=== PATIENT | female | born 1975 | race Two or more races ===

== ENCOUNTER 2016-12-13 18:41 | Emergency (ER) | payer MEDICAID ==
[~2016-12-13] VITALS: Ht 162.6 cm; Wt 90.7 kg
[~2016-12-13 18:41] MED LIST: ACETAMINOPHEN-1 EAC1 ORAL; ALBUTEROL SULF8.5 GM INH; AZITHROMYCIN250 MG PO; BENADRYL25 MG ORAL; CYCLOBENZAPRINE10 MG ORAL; HYDROCORTISON28.4 G5 RC; IBUPROFEN600 MG ORAL; NEXIUM20 MG ORAL; NITROFURANTOIN100 M2 ORAL; NKM; NORCO 5-325 TA1 EACH ORAL; ONDANSETRON ODT4 MG ORAL; PHENERGAN6.25 MG/5 ORAL; PROAIR HFA8.5 GM INH; ZOFRAN ODT4 MG ORAL
[2016-12-13] MEDS ORDERED: Metoclopramide 10mg/10ml Liq ORAL ONE (19:15)
[2016-12-13 19:19] LABS: APPEARANCE,URINE CLEAR; KETONES,URINE NEGATIVE (NEGATIVE); LEUKOCYTE ESTERASE ,URINE NEGATIVE (NEGATIVE); NITRITE,URINE NEGATIVE (NEGATIVE); PH,URINE 6 (4.5-8.0); PROTEIN,URINE NEGATIVE (NEGATIVE); UROBILINOGEN,URINE NORMAL MG/DL (0.0-1.0)
[2016-12-13 19:27] LABS: BACTERIA,URINE FEW /HPF; SQUAMOUS EPITHELIAL CELL,UR FEW /LPF (NONE/OCC); WBC,URINE 0-2 /HPF (0 - 2)
[2016-12-13] MEDS ORDERED: Ketorolac 60mg Inj IM ONE (19:45)
--- NOTE | 2016-12-13 19:50 | Emergency Room Report ---
History of Present Illness General Chief Complaint: Headache Source: Patient Present Illness HPI 40-year-old female presents to the emergency department complaining of 10 out of 10 in severity left-sided headache x3 days with associated photophobia. Patient denies nausea, vomiting, fevers, chills, neck pain or stiffness, recent infection. Patient reports history of headaches almost daily for approximately 2 years. Patient states she was evaluated for migraine in the emergency department in the past but never followed up with a neurologist. Patient denies rhinorrhea or increased lacrimation. Patient states the pain is progressive over several days and then will completely resolve for approximately one day before returning again. denies weakness, imbalance , tinnitus, vertigo or dizziness. Patient denies dysuria, frequency, hematuria. Denies trauma or fall. Patient states that a few days ago she had a popped blood vessel in the left eye. Patient denies taking medication for her symptoms. Patient does not see primary care regularly. Denies CP, Palpitations , LOC, AMS, Changes in Vision, Sensation, paresthesias, or a sudden severe headache. Denies . Allergies: Coded Allergies: No Known Allergies (Unverified , 12/13/16) Patient History Past Medical History: see triage record Past Surgical History: none Pertinent Family History: none Last Menstrual Period: now Now: No Reviewed Nursing Documentation: PMH: Agreed, PSxH: Agreed Nursing Documentation-PMH Past Medical History: No Stated History Hx Asthma: Yes Review of Systems All Other Systems: negative except mentioned in HPI Physical Exam Vital Signs Date Time Temp Pulse Resp B/P Pulse Ox O2 Delivery O2 Flow Rate FiO2 12/13/16 18:45 98.1 86 18 120/77 98 Room Air Sp02 EP Interpretation: reviewed, normal General Appearance: no apparent distress, alert, GCS 15, non-toxic Head: normocephalic, atraumatic Eyes: left eye other - no clinical photophobia noted on physical exam, bilateral eye EOMI, bilateral eye PERRL, bilateral eye normal inspection ENT: hearing grossly normal, normal voice Neck: full range of motion, no meningismus, no bony tend, supple/symm/no masses Respiratory: lungs clear, normal breath sounds, speaking full sentences Cardiovascular #1: regular rate, rhythm, no edema Genitourinary: normal inspection, no CVA tenderness Musculoskeletal: back normal, gait/station normal, normal range of motion, non- tender Neurologic: alert, oriented x3, responsive, motor strength/tone normal, sensory intact, cerebellar normal, normal gait, speech normal, no pronator, other - negative sterling, DTR's are symmetric Psychiatric: judgement/insight normal, memory normal, mood/affect normal Reflexes: 2+ knee (R), 2+ knee (L) Skin: normal color, no rash, warm/dry, well hydrated Lymphatic: no adenopathy Medical Decision Making PA Attestation Dr. Oliver is my supervising Physician whom patient management has been discussed with. Diagnostic Impression: Primary Impression: Headache Qualified Codes: G44.011 - Episodic cluster headache, intractable ER Course 40-year-old female presents to the emergency department complaining of 10 out of 10 in severity left-sided progressive constant pulsatile headache x3 days with associated photophobia. Patient denies nausea, vomiting, fevers, chills, neck pain or stiffness, recent infection. Patient reports history of headaches almost daily for approximately 2 years. Patient states she was evaluated for migraine in the emergency department in the past but never followed up with a neurologist. Patient denies rhinorrhea or increased lacrimation. Patient states the pain is progressive over several days and then will completely resolve for approximately one day before returning again. denies weakness, imbalance , tinnitus, vertigo or dizziness. Patient denies dysuria, frequency , hematuria. Denies trauma or fall. Patient states that a few days ago she had a popped blood vessel in the left eye. Patient denies taking medication for her symptoms. Patient does not see primary care regularly. Denies CP, Palpitations, LOC, AMS, Changes in Vision, Sensation, paresthesias, or a sudden severe headache. Denies . Ddx considered but are not limited to migraine, SAH, Psedudo motor Cerebri, Mass lesion, Cluster MAYO, Tension MAYO, cranial mass/tumor , Post lumbar puncture MAYO, meningitis just to name a few. Vital signs: are WNL, pt. is afebrile H&PE are most consistent with migraine headache vs. cluster MAYO. no focal neurological deficits, negative pronator, face is symmetric. ORDERS: - UA: unremarkable -Urine Hcg: negative ED INTERVENTIONS: -Reglan PO -IM Toradol I do not suspect an emergent condition at this time given pt. history of chronic recurrent headaches and current benign physical exam. I believe this pt. needs to be evaluated by a neurologist for appropriate treatment of her symptoms. d/w pt. the importance of obtaining a PCP and being evaluated by a neurologist. Gave pt. ER Return precautions. Pt will be given list of primary care clinics as a resource for follow up. DISCHARGE: At this time pt. is stable for d/c to home. Will provide printed patient care instructions, and any necessary prescriptions. Care plan and follow up instructions have been discussed with the patient prior to discharge. Labs Test 12/13/16 18:55 Urine Color Pale yellow Urine Appearance Clear Urine pH 6 (4.5-8.0) Urine Specific [place] 1.020 (1.005-1.035) Urine Protein Negative (NEGATIVE) Urine Glucose (UA) Negative (NEGATIVE) Urine Ketones Negative (NEGATIVE) Urine Occult Blood 3+ (NEGATIVE) Urine Nitrite Negative (NEGATIVE) Urine Bilirubin Negative (NEGATIVE) Urine Urobilinogen Normal MG/DL (0.0-1.0) Urine Leukocyte Esterase Negative (NEGATIVE) Urine RBC 2-4 /HPF (0 - 2) Urine WBC 0-2 /HPF (0 - 2) Urine Squamous Epithelial Cells Few /LPF (NONE/OCC) Urine Bacteria Few /HPF (NONE) Urine HCG, Qualitative Negative Last Vital Signs Date Time Temp Pulse Resp B/P Pulse Ox O2 Delivery O2 Flow Rate FiO2 12/13/16 18:45 98.1 86 18 120/77 98 Room Air Disposition: HOME, SELF-CARE Condition: Stable Scripts Acetaminophen* (TYLENOL EXTRA STRENGTH*) 500 Mg Tablet 500 MG ORAL Q6HR Y for For Pain, #30 TAB 0 Refills Prov: Kenzie Carlson 12/13/16 Departure Forms: Return to Work Return to Work Date: Dec 15, 2016 Work Restrictions: None Return to Full Activity: Dec 15, 2016 Patient Instructions: Migraine Headache, Cluster Headache Additional Instructions: Take medications as directed. Follow up with a Primary Care Provider in 3-5 days, even if your symptoms have resolved. --Please review list of primary care clinics, if you do not already have a primary care provider Return sooner to ED if new symptoms occur, or current symptoms become worse. - Please note that this Emergency Department Report was dictated using [employer] methods analyst technology software, occasionally this can lead to erroneous entry secondary to interpretation by the dictation equipment. Kenzie Carlson Dec 13, 2016 19:50
[2016-12-13] MEDS ORDERED: TYLENOL EXTRA500 MG ORAL (20:14)
[2016-12-13 20:21] VITALS: BP 122/80
[2016-12-13 20:22] VITALS: BP 122/80
== END 2016-12-13 20:22 | disposition home or self-care (01) ==
LOC: EMR 20:07
DX: R51 Headache (principal); J45.909 Unspecified asthma, uncomplicated
CPT/HCPCS: 81003; 81025; 96372; 99283

== ENCOUNTER 2019-02-21 13:03 | Emergency (ER) | payer MEDICAID ==
[~2019-02-21] VITALS: Ht 152.4 cm; Wt 99.8 kg
[~2019-02-21 13:03] MED LIST changes: +TYLENOL EXTRA500 MG ORAL
[2019-02-21 13:14] VITALS: BP 109/74
--- NOTE | 2019-02-21 13:24 | NUR ---
ED Nurse Note: PT CAME IN DUE TO LEFT KNEE PAIN THAT HAS BEEN WORSE FOR THE LAST 3 DAYS.PT HAS CHRONIC KNEE PAIN X 1.5 YEARS AND IS NOT TAKING PAIN MEDS AT HOME. AAO X4 AND AMBULATORY.
--- NOTE | 2019-02-21 13:58 | Emergency Room Report ---
History of Present Illness General Chief Complaint: Pain Source: Patient Present Illness HPI 43 YO Female presents to the ED c/o 01/02 in severity progressive left knee pain x 3 days. Pt. reports exacerbation of her chronic knee pain that previously would only bother her intermittently. Pt. reports she has been more active than usual the past few days. Pt. denies recent trauma or fall. She denies erythema or warmth. Denies fevers, chills, or open wounds. Pt. reports pain is exacerbated with walking and standing. She states she also is beginning to have pain radiate to the left Hip. She denies Midline neck or back pain. Denies saddle anesthesia. She reports no relief with Tylenol which would always work for her in the past. Allergies: Coded Allergies: No Known Allergies (Unverified , 12/13/16) Patient History Past Medical History: see triage record Past Surgical History: none Pertinent Family History: none Last Menstrual Period: 02/12/19 Now: No Reviewed Nursing Documentation: PMH: Agreed; PSxH: Agreed Nursing Documentation-PMH Past Medical History: No Stated History Hx Asthma: Yes Review of Systems All Other Systems: negative except mentioned in HPI Physical Exam Vital Signs Date Time Temp Pulse Resp B/P (MAP) Pulse Ox O2 Delivery O2 Flow Rate FiO2 02/21/19 13:14 98.2 72 17 109/74 (86) 99 Room Air Sp02 EP Interpretation: reviewed, normal General Appearance: no apparent distress, alert, GCS 15, non-toxic Head: normocephalic, atraumatic Eyes: bilateral eye normal inspection, bilateral eye PERRL ENT: hearing grossly normal, normal voice Neck: full range of motion Respiratory: chest non-tender, lungs clear, normal breath sounds, speaking full sentences Cardiovascular #1: regular rate, rhythm, normal capillary refill Cardiovascular #2: 2+ dorsalis pedis (R) - post. tibial, 2+ dorsalis pedis (L) - post. tibial Musculoskeletal: back normal, gait/station normal - compensating, favoring the left leg, normal range of motion, other, tender - anteriomedial ttp. FROM. Negative anterior posterior drawer signs, no increased laxity upon varus and valgus stressing. Patient is able to bear weight. Patient is able to fully flex and extend the left leg. Neurologic: alert, oriented x3, responsive, motor strength/tone normal, sensory intact, speech normal, grossly normal Psychiatric: judgement/insight normal Skin: no rash, normal color Medical Decision Making PA Attestation Dr. Dent is my supervising Physician whom patient management has been discussed with. Diagnostic Impression: Primary Impression: Knee pain, left Qualified Codes: M25.562 - Pain in left knee ER Course 43 YO Female presents to the ED c/o 01/02 in severity progressive left knee pain x 3 days. Pt. reports exacerbation of her chronic knee pain that previously would only bother her intermittently. Pt. reports she has been more active than usual the past few days. Pt. denies recent trauma or fall. She denies erythema or warmth. Denies fevers, chills, or open wounds. Pt. reports pain is exacerbated with walking and standing. She states she also is beginning to have pain radiate to the left Hip. She denies Midline neck or back pain. Denies saddle anesthesia. She reports no relief with Tylenol which would always work for her in the past. Ddx considered but are not limited to Fracture, dislocation, contusion, Sprain/ Strain/Spasm. Vital signs: are WNL, pt. is afebrile H&PE are most consistent with musculoskeletal injury will perform imaging to r/ o fractures/dislocations. ORDERS: - X-ray Left Knee - negative for fx, Dislocation, or significant soft tissue injury, per preliminary read in ED, and signed by LUDA Carlson, my supervising physician has reviewed, and agrees with my interpretation. ED INTERVENTIONS: -Keo wrap applied by optical engineering technician. Pt. remains neurovascularly intact. DISCHARGE: At this time pt. is stable for d/c to home. Will provide printed patient care instructions, and any necessary prescriptions. Care plan and follow up instructions have been discussed with the patient prior to discharge. Other X-Ray Diagnostic Results Other X-Ray Diagnostic Results : X-Ray ordered: Left Knee # of Views/Limited Vs Complete: 3 View Indication: Pain EP Interpretation: Yes LUDA Xray: Interpretation reviewed, by supervising MD, and agrees with findings. Interpretation: no dislocation, no soft tissue swelling, no fractures Impression: No acute disease Electronically Signed by: Kenzie Carlson PA-C Last Vital Signs Date Time Temp Pulse Resp B/P (MAP) Pulse Ox O2 Delivery O2 Flow Rate FiO2 02/21/19 13:14 98.2 72 17 109/74 99 Room Air Disposition: HOME, SELF-CARE Condition: Stable Scripts Ibuprofen* (MOTRIN*) 600 Mg Tablet 600 MG ORAL THREE TIMES A DAY, #30 TAB 0 Refills Prov: Kenzie Carlson 02/21/19 Acetaminophen With Codeine (T#3) (TYLENOL #3 TAB*) Y Tab 1 TAB ORAL Q6H PRN for For Pain, #10 TAB Prov: Kenzie Carlson 02/21/19 Patient Instructions: Knee Pain, Vcer-us-Dxdl Additional Instructions: Take medications as directed. Follow up with a Primary Care Provider in 3-5 days, even if your symptoms have resolved. --Please review list of primary care clinics, if you do not already have a primary care provider Return sooner to ED if new symptoms occur, or current symptoms become worse. Do not drink alcohol, drive, or operate heavy machinery while taking Tylenol # 3 as this may cause drowsiness. - Please note that this Emergency Department Report was dictated using [employer] assistant technology software, occasionally this can lead to erroneous entry secondary to interpretation by the dictation equipment. Kenzie Carlson Feb 21, 2019 13:58
[2019-02-21] MEDS ORDERED: IBUPROFEN600 MG ORAL (14:34)
[2019-02-21] MEDS ORDERED: ACETAMINOPHEN-1 EAC1 ORAL (14:34)
[2019-02-21 14:41] VITALS: BP 112/70
--- NOTE | 2019-02-21 16:00 | Diagnostic Imaging Report ---
INDICATION: Knee Pain COMPARISON: None 3 views of the left knee were obtained. FINDINGS: No acute fracture, malalignment, or joint effusion are identified. Impression: Negative for acute injury
== END 2019-02-21 14:41 | disposition home or self-care (01) ==
LOC: EMR 14:30
DX: M25.562 Pain in left knee (principal); J45.909 Unspecified asthma, uncomplicated
CPT/HCPCS: 73562; Z7502; 99283

== ENCOUNTER 2019-03-15 13:51 | Emergency (ER) | payer MEDICAID, OTHER ==
[~2019-03-15] VITALS: Ht 162.6 cm; Wt 81.6 kg
[2019-03-15 15:03] VITALS: BP 115/78
--- NOTE | 2019-03-15 15:32 | Emergency Room Report ---
History of Present Illness General Chief Complaint: Multiple Trauma/Fall Source: Patient Present Illness HPI 43-year-old female who presents to emergency room status post fall at 4:30 AM at work. Patient was walking when she tripped. Patient denies any dizziness, loss of consciousness, or open wounds at time of injury. She does note however a headache and reports a video showing that she hit her head. Patient states her pain is mostly now on her right side of her body on her shoulder upper back and hips. She also notes mild pain to right lower extremity and head at this time. She denies any tinnitus, neck pain, nausea, vomiting, abdominal pain, chest pain, shortness of breath, dizziness, muscle weakness or sensory changes. Allergies: Coded Allergies: No Known Allergies (Unverified , 12/13/16) Patient History Past Medical History: asthma Past Surgical History: none Last Menstrual Period: now Now: No Nursing Documentation-[facility] Past Medical History: No History, Except For Hx Asthma: Yes Review of Systems Constitutional: Denies: chills, fever Respiratory: Denies: cough, shortness of breath Cardiovascular: Denies: chest pain, palpitations Gastrointestinal: Denies: abdominal pain, nausea, vomiting Genitourinary: Denies: pain, incontinence Musculoskeletal: Reports: back pain, joint pain; Denies: joint swelling Physical Exam Vital Signs Date Time Temp Pulse Resp B/P (MAP) Pulse Ox O2 Delivery O2 Flow Rate FiO2 03/15/19 14:14 97.9 76 18 112/74 (87) 97 Room Air Sp02 EP Interpretation: reviewed, normal General Appearance: no apparent distress, alert, non-toxic Head: normocephalic, atraumatic Neck: full range of motion, supple/symm/no masses Respiratory: chest non-tender, lungs clear, normal breath sounds, speaking full sentences Cardiovascular #1: regular rate, rhythm, no edema Cardiovascular #2: 2+ radial (R), 2+ radial (L) Gastrointestinal: normal bowel sounds, non tender, soft, non-distended, no guarding, no rebound Rectal: deferred Musculoskeletal: tender - Diffuse paraspinal and lateral back tenderness over upper trapezius and lateral right lumbar. Neurologic: normal inspection, alert, normal gait Medical Decision Making ER Course 43-year-old female complaining status post fall of right-sided back pain and knee pain. Patient found to have full range of motion, and no deformities on exam. Patient has no neurological deficits, normal motor strength, and sensory exam. Patient has no midline spinal tenderness over cervical, thoracic, or lumbar spine. Differential includes muscular skeletal pain versus acute fracture X-rays of injured areas of body. Patient had no loss of consciousness, despite head injury during fall. She complains of a mild headache at this time. Patient is moving all 4 extremities spontaneously and has no neurological deficits. Patient does not need CT at this time. We will continue to reassess She is given ibuprofen for pain control CT/MRI/US Diagnostic Results CT/MRI/US Diagnostic Results : Imaging Test Ordered: Hip x-ray, knee x-ray, lumbar spine x-ray, shoulder x- ray Impression X-ray right hip: No acute fracture, alignment of hip within normal limits, soft tissues unremarkable, negative for acute injury. Right knee x-ray: No acute fracture malalignment, or joint effusion, negative for acute findings. Lumbar spine x-ray: Narrowing of L4-L5 disc, moderate sclerosis of lumbar facets on multiple levels, minimal anterolisthesis at L4-L5. No acute fractures noted. Right shoulder x-ray: No acute fracture or malalignment, soft tissues unremarkable. Negative for acute injury Last Vital Signs Date Time Temp Pulse Resp B/P (MAP) Pulse Ox O2 Delivery O2 Flow Rate FiO2 03/15/19 15:03 74 20 Room Air 03/15/19 15:03 97.9 115/78 98 Reevaluation Impression X-rays reviewed. Patient's pain improved with ibuprofen. Patient stable for outpatient follow-up at primary care doctor. Filled out Workmen's Comp. paperwork and given 3 days off of work for patient to rest and take anti- inflammatories as prescribed. Disposition: HOME, SELF-CARE Condition: Stable Scripts Ibuprofen* (MOTRIN*) 600 Mg Tablet 600 MG ORAL Q8H PRN for For Pain, #30 TAB 0 Refills Prov: Ren Gutierrez M.D. 03/15/19 Referrals: NOT [facility]/,REFERRING (PCP) Ren Gutierrez M.D. Mar 15, 2019 15:32
--- NOTE | 2019-03-15 16:01 | Diagnostic Imaging Report ---
Indication: Right shoulder pain COMPARISON: None Findings: 3 views of the right shoulder were obtained. No acute fractures, malalignment, erosions or periostitis are identified. Soft tissues are unremarkable. Impression: Negative for acute injury
--- NOTE | 2019-03-15 16:33 | Diagnostic Imaging Report ---
Indication: Back pain Comparison: None Findings: 3 views of the lumbar spine were obtained. There is narrowing of L4-5 disc. There is a moderate sclerosis of the lumbar facets multiple levels. Minimal anterolisthesis demonstrated at this level. IMPRESSION: Narrowing of the L4-5 disc with mild anterolisthesis. Multilevel facet arthropathy
--- NOTE | 2019-03-15 16:39 | Diagnostic Imaging Report ---
Indication: Right knee Pain 3 views of the right knee were obtained. Findings: No acute fracture, malalignment, or joint effusion are identified. Impression: Negative for acute findings.
--- NOTE | 2019-03-15 16:40 | Diagnostic Imaging Report ---
Indications: Right hip pain Findings: Two views of the right hip were obtained. No acute fracture is demonstrated. Alignment of the hip is within normal limits. Soft tissues are unremarkable. Impression: Negative for acute injury.
[2019-03-15] MEDS ORDERED: IBUPROFEN600 MG ORAL (16:45)
[2019-03-15 16:51] VITALS: BP 135/85
== END 2019-03-15 16:51 | disposition home or self-care (01) ==
LOC: EMR 15:05
DX: M54.9 Dorsalgia, unspecified (principal); M25.561 Pain in right knee; R51 Headache; M25.552 Pain in left hip; M25.551 Pain in right hip; M25.511 Pain in right shoulder
CPT/HCPCS: 72020; 99284